=== PATIENT | male | born 1985 | race Caucasian/White ===

== ENCOUNTER 2018-11-11 13:26 | Emergency (ER) | payer OTHER ==
[2018-11-11] MEDS ORDERED: CYCLOBENZAPR5 MG PO (13:57)
[2018-11-11 14:04] VITALS: BP 133/81
== END 2018-11-11 14:06 | disposition home or self-care (01) | DRG 556 ==
LOC: ED 13:26
DX: M62.838 Other muscle spasm (principal); F17.290 Nicotine dependence, other tobacco product, uncomplicated